=== PATIENT | female | born 1930 | race Caucasian/White ===

== ENCOUNTER 2016-12-15 05:22 | Emergency (ER) | payer MEDICARE, OTHER ==
--- NOTE | 2016-12-15 05:33 | ED Physician Documentation ---
PD HPI DYSPNEA - Stated complaint Stated Complaint: COUGH - Chief complaint Chief Complaint: Resp - History obtained from History obtained from: Patient - History of Present Illness Timing - onset: How many days ago (4-5 days ago) Timing - duration: Days Timing - details: Gradual onset, Waxing and waning Improved by: Rest Worsened by: Exertion, Coughing Associated symptoms: Cough, Wheezing, Chest pain / discomfort. No: Fever, Bilateral edema, Unilateral edema Similar symptoms before: Has not had sx before Recently seen: Not recently seen - Additional information Additional information: c/o few days of worsening cough, dyspnea with exertion, and right lower chest pain that is worse with palpation, movement, and coughing. Review of Systems Constitutional: denies: Fever, Chills, Sweats Cardiac: reports: Chest pain / pressure (right chest wall pain). denies: Palpitations Respiratory: reports: Dyspnea, Cough, Wheezing GI: reports: Reviewed and negative Musculoskeletal: denies: Extremity swelling PD PAST MEDICAL HISTORY - Past Medical History Past Medical History: No - Past Surgical History Past Surgical History: No - Present Medications Home Medications: Ambulatory Orders Medication Instructions Recorded Confirmed Albuterol Sulf [Ventolin Hfa 1 - 2 puffs INH Q4HR PRN #1 inhaler 12/15/16 Inhaler] Prednisone 40 mg PO DAILY 3 Days 12/15/16 - Allergies Allergies/Adverse Reactions: Allergies Allergy/AdvReac Type Severity Reaction Status Date / Time No Known Drug Allergies Allergy Verified 12/15/16 05:38 - Living Situation Living Situation: reports: Alone Living Arrangement: reports: At home - Social History Does the pt smoke?: No PD ED PE NORMAL - Vitals Vital signs reviewed: Yes - General General: Alert and oriented X 3, No acute distress, Well developed/nourished - Cardiac Cardiac: RRR, No murmur - Respiratory Respiratory: No respiratory distress PD ED PE EXPANDED - Respiratory Respiratory: Wheezing (bilateral course expiratory wheezing with prolonged expiratory phase) Results - Vitals Vitals: Vital Signs - 24 hr 12/15/16 12/15/16 12/15/16 05:30 05:36 06:15 Temperature 36.7 C 36.6 C Heart Rate 74 98 99 Respiratory 20 18 18 Rate Blood Pressure 190/118 H 173/80 H O2 Saturation 98 99 12/15/16 12/15/16 12/15/16 07:38 07:41 08:42 Temperature Heart Rate 67 87 93 Respiratory 20 20 20 Rate Blood Pressure 141/72 H 125/55 L O2 Saturation 93 96 Oxygen O2 Source Room air - EKG (time done) No standard instances Rate: Rate (enter#) (89) Rhythm: NSR Crowheart: LAD, Anterior hemiblock Intervals: Normal [place] QRS: Normal Ischemia: Normal ST segments - Labs Labs: Laboratory Tests 12/15/16 12/15/16 12/15/16 06:02 06:02 06:02 WBC 5.1 RBC 5.03 Hgb 12.8 Hct 39.4 MCV 78.4 L MCH 25.4 L MCHC 32.4 RDW 15.1 H Plt Count 142 MPV 9.1 Neut # 3.8 Lymph # 0.8 L Clay # 0.3 Eos # 0.2 Baso # 0.0 Absolute Nucleated RBC 0.01 Nucleated RBCs 0.1 D-Dimer Sodium 137 Potassium 3.9 Chloride 102 Carbon Dioxide 25 Anion Gap 10.0 BUN 16 Creatinine 0.9 Estimated GFR (MDRD) 59 L Glucose 115 H Calcium 8.7 Troponin I < 0.04 B-Natriuretic Peptide 12/15/16 12/15/16 06:02 07:25 WBC RBC Hgb Hct MCV MCH MCHC RDW Plt Count MPV Neut # Lymph # Clay # Eos # Baso # Absolute Nucleated RBC Nucleated RBCs D-Dimer 314.5 H Sodium Potassium Chloride Carbon Dioxide Anion Gap BUN Creatinine Estimated GFR (MDRD) Glucose Calcium Troponin I B-Natriuretic Peptide 169 H - Rads (name of study) chest xray Radiology: Prelim report reviewed, See rad report PD MEDICAL DECISION MAKING - ED course Complexity details: reviewed results, re-evaluated patient, considered differential, d/w patient ED course: On reexamination (serial exams), there is improved aeration and decreased wheezing after 1st and then 2nd neb treatment, although she continued to have course expiratory wheezing bilaterally. Unremarkable w/u; I suspect bronchitis with bronchospasm Departure - Departure Disposition: 01 Home, Self Care Clinical Impression: Bronchitis Condition: Good Instructions: ED Bronchitis Asthmatic Follow-Up: Parag Moreno MD [Primary Care Provider] - (3-5 days if symptoms have not resolved) Prescriptions: Albuterol Sulf [Ventolin Hfa Inhaler] 1 - 2 puffs INH Q4HR PRN #1 inhaler PRN Reason: Shortness Of Air/Wheezing Prednisone 40 mg PO DAILY 3 Days Discharge Date/Time: 12/15/16 08:52
[2016-12-15] MEDS ORDERED: ALBUTEROL NEB 2.5 MG/3 ML INH STA ×2 (05:50→07:32)
[2016-12-15] MEDS ORDERED: ALBUTEROL NEB 2.5 MG/3 ML INH ONE ×2 (06:09→07:36)
[2016-12-15 06:20] LABS: CALCIUM 8.7 mg/dL (8.5-10.3); CREATININE 0.9 mg/dL (0.4-1.0); POTASSIUM 3.9 mmol/L (3.5-5.0)
[2016-12-15 06:23] LABS: BASOPHILS % (AUTO) 0.7 %; EOSINOPHILS # (AUTO) 0.2 10^3/uL (0.0-0.7); EOSINOPHILS % (AUTO) 3.9 %; HCT - HEMATOCRIT 39.4 % (37.0-47.0); HGB - HEMOGLOBIN 12.8 g/dL (12.0-16.0); LYMPHOCYTES # (AUTO) 0.8 10^3/uL (1.5-3.5); LYMPHOCYTES % (AUTO) 15.6 %; MEAN CORPUSCULAR HEMOGLOBIN 25.4 pg (27.0-31.0); MEAN CORPUSCULAR HGB CONC 32.4 g/dL (32.0-36.0); MEAN CORPUSCULAR VOLUME 78.4 fL (81.0-99.0); MEAN PLATELET VOLUME 9.1 fL (7.9-10.8); MONOCYTES # (AUTO) 0.3 10^3/uL (0.0-1.0); MONOCYTES % (AUTO) 5.2 %; NEUTROPHILS # (AUTO) 3.8 10^3/uL (1.5-6.6); NEUTROPHILS % (AUTO) 74.6 %; NUCLEATED RED BLOOD CELLS AUTO 0.1 /100WBC; RED BLOOD COUNT 5.03 10^6/uL (4.20-5.40); RED CELL DISTRIBUTION WIDTH 15.1 % (12.0-15.0); UNCORRECTED WHITE BLOOD COUNT 5.1 x10^3/uL; WHITE BLOOD COUNT 5.1 x10^3/uL (4.8-10.8)
--- NOTE | 2016-12-15 06:31 | XRAY Preliminary Report ---
Exam: XR Chest 2 View PA/LAT IMPRESSION: 1. No definite alveolar consolidation. 2. No wall thickening. This can be seen with bronchitis or reactive airways disease. [facility] SITE ID: [id number]
--- NOTE | 2016-12-15 06:33 | XRAY Report ---
EXAM: CHEST RADIOGRAPHY EXAM DATE: 12/15/2016 06:23 AM. CLINICAL HISTORY: Dyspnea. Productive cough. COMPARISON: 07/14/2015. TECHNIQUE: 2 views. FINDINGS: Lungs/Pleura: No definite alveolar consolidation or pleural effusion. Bronchial wall thickening. No p neumothorax. Mediastinum: Heart size is normal. Tortuous atherosclerotic aorta. Other: None. IMPRESSION: 1. No definite alveolar consolidation. 2. No wall thickening. This can be seen with bronchitis or reactive airways disease. [facility] Referring Provider Line: [phone] SITE ID: [id number]
[2016-12-15] MEDS ORDERED: predniSONE 20 MG TABLET PO STA (06:53)
[2016-12-15] MEDS ORDERED: predniSONE 20 MG TABLET ONE (07:35)
[2016-12-15] MEDS ORDERED: ALBUTEROL 8 GM INHALER INH STA (08:00)
[2016-12-15 08:42] VITALS: BP 125/55
== END 2016-12-15 08:52 | disposition home or self-care (01) ==
LOC: ED 05:22
DX: J40 Bronchitis, not specified as acute or chronic (principal)
CPT/HCPCS: 36415; 71020; 80048; 83880; 84484; 85025; 85379; 93005; 93010; 94640; 94664; 99284; J7512; J7613

== ENCOUNTER 2018-05-16 08:00 | Outpatient (CLI) | payer MEDICARE, OTHER ==
[2018-05-16 18:50] LABS: BASOPHILS % (AUTO) 0.7 %; EOSINOPHILS # (AUTO) 0.1 10^3/uL (0.0-0.7); HGB - HEMOGLOBIN 13.4 g/dL (12.0-16.0); LYMPHOCYTES # (AUTO) 1.1 10^3/uL (1.5-3.5); LYMPHOCYTES % (AUTO) 29.8 %; MEAN CORPUSCULAR VOLUME 78.8 fL (81.0-99.0); MEAN PLATELET VOLUME 8.8 fL (7.9-10.8); MONOCYTES # (AUTO) 0.2 10^3/uL (0.0-1.0); MONOCYTES % (AUTO) 5.2 %; NEUTROPHILS # (AUTO) 2.3 10^3/uL (1.5-6.6); NEUTROPHILS % (AUTO) 60.3 %; PLT - PLATELET COUNT 157 10^3/uL (130-450); RED BLOOD COUNT 5.17 10^6/uL (4.20-5.40); RED CELL DISTRIBUTION WIDTH 14.9 % (12.0-15.0); WHITE BLOOD COUNT 3.7 x10^3/uL (4.8-10.8)
[2018-05-16 19:16] LABS: ALBUMIN/GLOBULIN RATIO 1.1 (1.0-2.2); ALKALINE PHOSPHATASE 92 IU/L (42-121); ALT ALANINE AMINOTRANSFERASE 11 IU/L (10-60); AST ASPARTATE AMINOTRANSFERASE 19 IU/L (10-42); BILIRUBIN,TOTAL 0.6 mg/dL (0.2-1.0); BUN - BLOOD UREA NITROGEN 20 mg/dL (6-20); CARBON DIOXIDE - CO2 27 mmol/L (21-32); CHLORIDE 103 mmol/L (101-111); CHOL/HDL RATIO 3.6 (<4.4); CHOLESTEROL 224 mg/dL; CREATININE 0.8 mg/dL (0.4-1.0); GFR - MDRD 68 (>89); GLUCOSE 91 mg/dL (70-100); HDL CHOLESTEROL 62 mg/dL; LDL CHOLESTEROL,CALCULATED 139 mg/dL; LDL/HDL RATIO 2.2 (<4.4); SODIUM 138 mmol/L (135-145); TOTAL PROTEIN 7.5 g/dL (6.7-8.2); VLDL CHOLESTEROL 23 mg/dL
[2018-05-16 19:20] LABS: THYROID STIMULATING HORMONE 0.26 uIU/mL (0.34-5.60)
[2018-05-16 20:11] LABS: FREE T4 (FREE THYROXINE) 0.67 ng/dL (0.58-1.64)
== END 2018-05-16 08:01 ==
LOC: LAB.WCP 08:00
PROVIDERS: ATTEND Family Medicine
DX: I12.9 Hypertensive chronic kidney disease with stage 1 through stage 4 chronic kidney disease, or unspecified chronic kidney disease (principal); N18.2 Chronic kidney disease, stage 2 (mild); E78.5 Hyperlipidemia, unspecified
CPT/HCPCS: 36415; 80053; 80061; 83721; 84439; 84443; 85025

== ENCOUNTER 2018-05-23 10:49 | Outpatient (CLI) | payer MEDICARE, OTHER | END 2018-05-23 10:50 | disposition home or self-care (01) | LOC: DI 10:49 | PROVIDERS: ATTEND Family Medicine | DX: I11.9 Hypertensive heart disease without heart failure (principal); R06.00 Dyspnea, unspecified | CPT/HCPCS: 93306 ==

== ENCOUNTER 2018-07-09 14:30 | Emergency (ER) | payer MEDICARE, OTHER ==
[2018-07-09 14:50] VITALS: BP 165/84
--- NOTE | 2018-07-09 15:02 | ED Physician Documentation ---
PD HPI LOWER EXT INJURY - Stated complaint Stated Complaint: R LEG PX/FALL - Chief complaint Chief Complaint: Ext Problem - History obtained from History obtained from: Patient - History of Present Illness PD HPI LOW EXT INJURY LOCATION: Right, Knee, Lower leg Type of injury: Fall (just tripped and fell forward) Timing - onset: How many weeks ago (1) Timing - duration: Weeks (1) Timing - details: Abrupt onset (she fell and struck right knee with swelling and bruising. Still hurts for flex/ext. now has a day of bruising in anterior lower leg and some swelling starting in top of foot. No calf pain.) Worsened by: Palpating Associated symptoms: Swelling, Discolored (bruised). No: Weakness, Numbness Similar symptoms before: Has not had sx before Recently seen: Not recently seen Review of Systems Musculoskeletal: denies: Back pain Neurologic: denies: Focal weakness, Numbness PD PAST MEDICAL HISTORY - Past Medical History Cardiovascular: Hypertension - Past Surgical History Past Surgical History: No - Present Medications Home Medications: Ambulatory Orders Medication Instructions Recorded Confirmed Albuterol Sulf [Ventolin Hfa 1 - 2 puffs INH Q4HR PRN #1 inhaler 12/15/16 Inhaler] predniSONE [Prednisone] 40 mg PO DAILY 3 Days tablet 12/15/16 - Allergies Allergies/Adverse Reactions: Allergies Allergy/AdvReac Type Severity Reaction Status Date / Time No Known Drug Allergies Allergy Verified 12/15/16 05:38 - Social History Does the pt smoke?: No Smoking Status: Never smoker Does the pt drink ETOH?: No Does the pt have substance abuse?: No PD ED PE NORMAL - Vitals Vital signs reviewed: Yes - General General: Alert and oriented X 3, No acute distress, Well developed/nourished - Back Back: No spinal TTP - Derm Derm: Normal color, Warm and dry - Extremities Extremities: Other (right knee with effusion and bruising. No warmth. Posterior knee not tender. Calf not tender posteriorly. Anterior brooks with bruising but not tenderness. This extends to dorsum or ankle. Mild edema in foot. Good pulses, color and cap refill distally. ) Results - Vitals Vitals: Oxygen O2 Source Room air - Rads (name of study) right knee Radiology: Prelim report reviewed, EMP read contemporaneously (no fractures; arthritic), See rad report PD MEDICAL DECISION MAKING - ED course Complexity details: re-evaluated patient (attempted needle aspiration of knee with local anesth 1% and then 18G needle, but did not get any fluid out; presume clotted. ), considered differential (anterior knee effusion and bruising, presume hemarthrosis from fall. Has not bruising anterior brooks. No calf tenderness nor swelling. ), d/w patient Departure - Departure Disposition: 01 Home, Self Care Clinical Impression: Hemarthrosis Knee contusion Qualifiers: Encounter type: initial encounter Laterality: right Qualified Code(s): S80.01XA - Contusion of right knee, initial encounter Condition: Stable Record reviewed to determine appropriate education?: Yes Instructions: ED Effusion Knee Follow-Up: Parag Moreno MD [Primary Care Provider] - Comments: edie wrap for knee and lower leg. The swelling and bruising should go down slowly. Tylenol if needed for pains. Discharge Date/Time: 07/09/18 16:58
[2018-07-09] MEDS ORDERED: LIDOCAINE MPF 1%-EPI 1:200000 30 ML VIAL SUBQ STA (15:35)
--- NOTE | 2018-07-09 16:33 | XRAY Report ---
Reason: knee injury from fall Procedure Date: 07/09/2018 Accession Number: [id number] / [id number] Procedure: XR - Knee 3 View RT CPT Code: FULL RESULT: EXAM: RIGHT KNEE RADIOGRAPHY EXAM DATE: 07/09/2018 04:01 PM. CLINICAL HISTORY: Knee injury from fall. COMPARISON: None. TECHNIQUE: 3 views. FINDINGS: Mild bicompartment femorotibial degenerative joint disease with osteophytes. Chondrocalcinosis at the femorotibial joint. Patellofemoral degenerative joint disease with osteophytes and severe lateral facet patellofemoral joint space narrowing with sclerosis. Mild lateral subluxation of the patella at the patellofemoral joint. No dislocation. No evidence for acute fracture. Anterior knee soft tissue swelling. IMPRESSION: 1. No evidence for acute fracture. 2. Anterior knee soft tissue swelling. 3. Tricompartment degenerative joint disease, most severe at the patellofemoral joint lateral facet with mild lateral patellar subluxation. [facility]
== END 2018-07-09 16:58 | disposition home or self-care (01) ==
LOC: ED 14:30
DX: M25.061 Hemarthrosis, right knee (principal); S80.01XA Contusion of right knee, initial encounter; W19.XXXA Unspecified fall, initial encounter; I10 Essential (primary) hypertension
CPT/HCPCS: 10160; 99283

== ENCOUNTER 2018-08-21 08:17 | Outpatient (CLI) | payer MEDICARE, OTHER ==
[2018-08-21 14:18] LABS: THYROID STIMULATING HORMONE 0.83 uIU/mL (0.34-5.60)
[2018-08-21 14:23] LABS: FREE T4 (FREE THYROXINE) 0.64 ng/dL (0.58-1.64)
== END 2018-08-21 23:59 | disposition home or self-care (01) ==
LOC: LAB.WCP 08:17
PROVIDERS: ATTEND Family Medicine
DX: R94.6 Abnormal results of thyroid function studies (principal); R25.1 Tremor, unspecified
CPT/HCPCS: 36415; 84439; 84443; 84481

== ENCOUNTER 2019-07-15 08:11 | Outpatient (CLI) | payer MEDICARE, OTHER ==
[2019-07-15 12:35] LABS: BASOPHILS % (AUTO) 0.4 %; EOSINOPHILS # (AUTO) 0.2 10^3/uL (0.0-0.7); EOSINOPHILS % (AUTO) 3.4 %; HGB - HEMOGLOBIN 13.4 g/dL (12.0-16.0); LYMPHOCYTES # (AUTO) 1.7 10^3/uL (1.5-3.5); LYMPHOCYTES % (AUTO) 37.1 %; MEAN CORPUSCULAR HEMOGLOBIN 24.8 pg (27.0-31.0); MEAN CORPUSCULAR HGB CONC 29.9 g/dL (32.0-36.0); MEAN PLATELET VOLUME 10.6 fL (7.9-10.8); MONOCYTES # (AUTO) 0.2 10^3/uL (0.0-1.0); MONOCYTES % (AUTO) 5.2 %; NEUTROPHILS # (AUTO) 2.5 10^3/uL (1.5-6.6); NEUTROPHILS % (AUTO) 53.7 %; PLT - PLATELET COUNT 194 10^3/uL (130-450); RED CELL DISTRIBUTION WIDTH 14.7 % (12.0-15.0); WHITE BLOOD COUNT 4.7 x10^3/uL (4.8-10.8)
[2019-07-15 12:58] LABS: ALBUMIN 4.3 g/dL (3.2-5.5); ALBUMIN/GLOBULIN RATIO 1.2 (1.0-2.2); ALKALINE PHOSPHATASE 75 IU/L (42-121); ALT ALANINE AMINOTRANSFERASE 13 IU/L (10-60); AST ASPARTATE AMINOTRANSFERASE 20 IU/L (10-42); BILIRUBIN,TOTAL 0.5 mg/dL (0.2-1.0); BUN - BLOOD UREA NITROGEN 26 mg/dL (6-20); CALCIUM 9.1 mg/dL (8.5-10.3); CARBON DIOXIDE - CO2 29 mmol/L (21-32); CHLORIDE 104 mmol/L (101-111); CHOL/HDL RATIO 3.6 (<4.4); CHOLESTEROL 232 mg/dL; CREATININE 0.9 mg/dL (0.4-1.0); GFR - MDRD 59 (>89); GLUCOSE 110 mg/dL (70-100); HDL CHOLESTEROL 65 mg/dL; LDL CHOLESTEROL,CALCULATED 154 mg/dL; LDL/HDL RATIO 2.4 (<4.4); SODIUM 140 mmol/L (135-145); TOTAL PROTEIN 7.9 g/dL (6.7-8.2); VLDL CHOLESTEROL 13 mg/dL
== END 2019-07-15 23:59 | disposition home or self-care (01) ==
LOC: LAB.WCP 08:11
PROVIDERS: ATTEND Family Medicine
DX: Z00.00 Encounter for general adult medical examination without abnormal findings (principal); N39.41 Urge incontinence; E78.5 Hyperlipidemia, unspecified; I10 Essential (primary) hypertension
CPT/HCPCS: 36415; 80053; 80061; 83721; 84443; 85025

== ENCOUNTER 2019-08-20 08:12 | Day surgery (SDC) | payer MEDICARE, OTHER ==
[2019-08-20] MEDS ORDERED: ceFAZolin 1 GM VIAL ONE (08:27)
[2019-08-20] MEDS ORDERED: LACTATED RINGERS 1,000 ML IV ONE ×2 (08:45→08:54)
--- NOTE | 2019-08-20 08:51 | ANESTHESIA ---
Pre-Anesthesia VS, & Labs - Diagnosis Right buttock hematoma - Procedure Evacuate right buttock hematoma, drain placement Vital Signs: Temp Pulse Resp BP Pulse Ox 36.8 C 70 18 167/75 H 97 08/20/19 08:37 08/20/19 08:37 08/20/19 08:37 08/20/19 08:37 08/20/19 08:37 Height 5 ft Weight (kg) 67 kg Body Mass Index 26.9 - NPO >8 hours - Is Patient ?: Not Applicable - Lab Results Lab results reviewed: Yes Home Medications and Allergies Home Medications: Ambulatory Orders Oxybutynin Chloride [Ditropan Xl] 10 mg PO DAILY 08/15/19 Telmisartan 80 mg PO DAILY 08/15/19 Oxybutynin Chloride [Ditropan Xl] 10 mg PO DAILY 08/15/19 Telmisartan 80 mg PO DAILY 08/15/19 Allergies/Adverse Reactions: Allergies Allergy/AdvReac Type Severity Reaction Status Date / Time No Known Drug Allergies Allergy Verified 12/15/16 05:38 Anes History & Medical History - Anesthetic History Anesthesia Complications: reports: No previous complications Family history of Anesthesia Complications: Denies Family history of Malignant Hyperthermia: Denies - Medical History Cardiovascular: reports: Hypertension, High cholesterol Pulmonary: reports: None Gastrointestinal: reports: None Urinary: reports: Incontinence Neuro: reports: None, Other (Vertigo) Musculoskeletal: reports: Osteoarthritis Endocrine/Autoimmune: reports: None Blood Disorders: reports: None Skin: reports: None Smoking Status: Never smoker Psychosocial: reports: No issues indicated - Surgical History General: Appendectomy, Colonoscopy Eyes Ears Nose Throat (EENT): Cataracts Gynecologic: Hysterectomy, Oophrectomy, Other Results - EKG Results EKG Comparison: Reviewed EKG - Echo Results Echo Results: Report reviewed Exam General: Alert, Oriented x3, Cooperative Dental: Poor dentition Mouth Opening: Greater than 4 Fingerbreadths Neck Mobility: Normal Mallampati classification: II Thyromental Distance: greater than 6 cm Respiratory: Lungs clear Cardiovascular: Regular rate Mental/Cognitive Status: Alert/Oriented X3 Cognitive Status: Within normal limits Plan Anesthesia Type: General Consent for Procedure(s) Verified and Reviewed: Yes Code Status: Attempt Resuscitation ASA classification: 2-Mild systemic disease Is this case an emergency?: No
[2019-08-20] MEDS ORDERED: MIDAZOLAM 2 MG/2 ML VIAL IVP ONE (10:37)
[2019-08-20] MEDS ORDERED: fentaNYL 100 MCG/2 ML VIAL IVP ONE (10:37)
[2019-08-20] MEDS ORDERED: KETAMINE 500 MG/10 ML VIAL IVP ONE (10:37)
[2019-08-20] MEDS ORDERED: PROPOFOL 200 MG/20 ML VIAL IVP ONE (10:37)
[2019-08-20] MEDS ORDERED: LIDOCAINE 1%-EPI 1:100000 20 ML MDV SUBQ ONE ×2 (10:59)
[2019-08-20] MEDS ORDERED: BUPIVACAINE 0.5% PF 10 ML VIAL SUBQ ONE ×2 (10:59)
--- NOTE | 2019-08-20 11:15 | OPERATIVE REPORT ---
Operative Report - General Procedure Date: 08/20/19 Planned Procedure: Evacuation of right buttock hematoma Pre-Op Diagnosis: Large, painful right buttock hematoma Procedure Performed: Evacuation of right buttock hematoma Post Op Diagnosis: Large, painful right buttock hematoma - Procedure Note Primary Surgeon: Jamil Anesthesia Provider: VELVET Ross Anesthesia Technique: Local, MAC Pathology: None Estimated Blood Loss (mL): 10 Drain/Tube Type: Tu Rai round drain (15 F drain in the hematoma pocket) Findings: Old blood within a fibrotic pocket. No evidence of infection Complications: None apparent - Other Other Information/Narrative: After obtaining informed consent, the patient is brought to the operating room and placed in the supine position on the operating table. Following successful induction of monitored anesthesia care with sedation, the patient is rolled to the left lateral decubitus position and all bony prominences padded. The right buttock and surrounding area were prepped and draped in the standard surgical fashion. A timeout was held per scope protocol.All elements of the surgical safety checklist were followed before, during, and after the procedure. Following infiltration with local anesthetic create a field block, an incision was created directly over the palpable hematoma. This was carried through the skin and subcutaneous tissue to enter the hematoma cavity. We evacuated and waited approximately 200 mL of old blood. The wound was then checked for hemostasis. The cavity was noted to be significantly fibrotic and have a thick and well-developed rind. This rind was then carefully dissected free from the overlying subcutaneous tissue and underlying muscle. This was done to prevent re-collection of fluid in this area. The wound was then checked once again for hemostasis and irrigated with warm saline solution. Once we were satisfied it was all clean and dry, 15 Setswana Tu-Rai drain was placed in the pocket and brought out inferior laterally. This was sewn into place with a single Prolene suture. The wound was then closed in 2 layers with Vicryl Monocryl suture. Dermabond was applied to the skin. All sponge, needle, and instrument counts were correct at the conclusion of the case. The patient was allowed awaken from sedation without difficulty and taken to the postanesthesia care unit in good condition.
[2019-08-20] MEDS ORDERED: IBUPROFEN 600 MG TABLET PO PRN (11:18)
[2019-08-20] MEDS ORDERED: ACETAMINOPHEN 325 MG TABLET PO PRN (11:18)
[2019-08-20] MEDS ORDERED: ONDANSETRON 4 MG/2 ML VIAL IVP PRN (11:18)
[2019-08-20] MEDS ORDERED: oxyCODONE 5 MG TABLET PO PRN (11:18)
[2019-08-20] MEDS ORDERED: traMADol 50 MG TABLET PO PRN (11:22)
[2019-08-20] MEDS ORDERED: traMADol 50 MG TABLET PO ONE (11:55)
[2019-08-20 12:01] VITALS: BP 133/88
== END 2019-08-20 08:13 | disposition home or self-care (01) ==
LOC: SDS 08:12
PROVIDERS: ATTEND Surgery
PROC: 0Y9000Z Drainage of Right Buttock with Drainage Device, Open Approach (ICD-10-PCS; principal; 2019-08-20 09:45)
DX: S30.0XXA Contusion of lower back and pelvis, initial encounter (principal); I12.9 Hypertensive chronic kidney disease with stage 1 through stage 4 chronic kidney disease, or unspecified chronic kidney disease; N18.2 Chronic kidney disease, stage 2 (mild)
CPT/HCPCS: 10140; A9270; J7120